=== PATIENT | male | born 1965 | race African-American/Black ===

== ENCOUNTER 2022-03-06 12:25 | Inpatient (IN) | payer MEDICAID, OTHER ==
[~2022-03-06] VITALS: Ht 165.1 cm; Wt 61.7 kg
[2022-03-06] MEDS ORDERED: SODIUM CHLORIDE 0.9% 1,000 ML IV ONE ×2 (13:45→14:00)
[2022-03-06] MEDS ORDERED: ONDANSETRON HCL 4MG/2ML INJ IV ONE (13:45)
[2022-03-06] MEDS ORDERED: FAMOTIDINE 20MG/2ML VIAL IV ONE (13:45)
[2022-03-06 14:43] LABS: BASOPHILS % 0.6 % (0.0-2.0); EOSINOPHILS % 0.1 % (0.0-5.0); LYMPHOCYTES % 12.9 % (20.0-50.0); MEAN CORPUSCULAR HEMOGLOBIN 21.7 pg (28.0-32.0); MEAN CORPUSCULAR VOLUME 70.7 fL (80.0-94.0); MONOCYTES % 7.3 % (2.0-8.0); NEUTROPHILS % 79.1 % (40.0-76.0); PLATELET 148 x1000/uL (130-400); RED BLOOD CELL COUNT 2.07 mill/uL (4.7-6.1); RED CELL DISTRIBUTION WIDTH 22.7 % (11.6-14.6)
[2022-03-06 14:54] LABS: HEMATOCRIT. 14.6 % (42.0-52.0); HEMOGLOBIN. 4.5 g/dL (14.0-18.0)
[2022-03-06 14:58] LABS: CHLORIDE 109 mEq/L (98-107)
[2022-03-06] MEDS ORDERED: PANTOPRAZOLE SODIUM 40 MG/VIAL IV ONE (15:15)
[2022-03-06 15:37] LABS: INR 1.3; PROTHROMBIN TIME 13.5 sec (9.6-11.0)
[2022-03-06 16:05] LABS: PLATELET ESTIMATE NORMAL
[2022-03-06] MEDS ORDERED: ONDANSETRON HCL 4MG/2ML INJ IV PRN (23:15)
[2022-03-06] MEDS: SODIUM CHLORIDE 0.9% 1,000 ML IV SCH (23:15)
[2022-03-06] MEDS ORDERED: ACETAMINOPHEN 325MG TABLET PO PRN ×2 (23:15)
[2022-03-06] MEDS ORDERED: ZOLPIDEM TARTRATE 5MG TABLET PO PRN (23:15)
[2022-03-06] MEDS: PANTOPRAZOLE SODIUM 40 MG/VIAL IV SCH (23:15)
[2022-03-06] MEDS ORDERED: DIPHENHYDRAMINE 50MG/ML VIAL IV PRN (23:15)
[2022-03-07] VITALS (36 sets, daily range): BP systolic 89–129; BP diastolic 23–69
[2022-03-07 00:08] LABS: TOTAL IRON BINDING CAPACITY 310 ug/dL (250-450)
[2022-03-07 04:58] LABS: HEMATOCRIT 21.2 % (42.0-52.0); MEAN CORPUSCULAR HEMOGLOBIN 25.3 pg (28.0-32.0); MEAN CORPUSCULAR VOLUME 79.4 fL (80.0-94.0); PLATELET 107 x1000/uL (130-400); RED BLOOD CELL COUNT 2.67 mill/uL (4.7-6.1); RED CELL DISTRIBUTION WIDTH 19.2 % (11.6-14.6)
[2022-03-07 05:13] LABS: HEMOGLOBIN 6.8 g/dL (14.0-18.0)
[2022-03-07] MEDS ORDERED: NOREPINEPHRINE 8MG/250ML PMX 250 ML IV NR (09:15)
[2022-03-07] MEDS: SODIUM CHLORIDE 0.9% 1,000 ML IV SCH ×2 (09:15→18:00)
[2022-03-07] MEDS: PANTOPRAZOLE SODIUM 40 MG/VIAL IV SCH ×2 (11:15→12:28)
[2022-03-07] MEDS ORDERED: IOHEXOL-300 100 ML BOTTLE ONE (12:03)
[2022-03-07] MEDS: IRON SUCROSE COMPLEX 100 MG/5 ML ML IV SCH (12:28)
[2022-03-07 14:30] LABS: HEMATOCRIT 32.8 % (42.0-52.0); HEMOGLOBIN 10.3 g/dL (14.0-18.0)
[2022-03-07] MEDS ORDERED: IRON SUCROSE COMPLEX 100 MG/5 ML ML IV SCH (15:00)
[2022-03-07 15:06] LABS: VITAMIN B12 SERUM 370 pg/mL (211-911)
[2022-03-07 15:36] LABS: FERRITIN 8 ng/mL (22-322)
[2022-03-07] MEDS ORDERED: NOREPINEPHRINE 8 MG in DEXTROSE 5% WATER 250 ML IV PRN (18:00)
[2022-03-07 18:47] LABS: HEMATOCRIT 29.5 % (42.0-52.0); HEMOGLOBIN 9.6 g/dL (14.0-18.0)
[2022-03-08] VITALS (38 sets, daily range): BP systolic 78–124; BP diastolic 24–99
[2022-03-08 00:37] LABS: HEMOGLOBIN 9.1 g/dL (14.0-18.0)
[2022-03-08] MEDS: SODIUM CHLORIDE 0.9% 1,000 ML IV SCH ×2 (04:21→16:00)
[2022-03-08 06:08] LABS: HEMATOCRIT 27.5 % (42.0-52.0); HEMOGLOBIN 8.9 g/dL (14.0-18.0)
[2022-03-08] MEDS: PANTOPRAZOLE SODIUM 40 MG/VIAL IV SCH (08:59)
[2022-03-08 11:59] LABS: HEMATOCRIT 29.3 % (42.0-52.0); HEMOGLOBIN 9.6 g/dL (14.0-18.0)
[2022-03-08] MEDS: IRON SUCROSE COMPLEX 100 MG/5 ML ML IV SCH (12:41)
[2022-03-09] VITALS (61 sets, daily range): BP systolic 92–135; BP diastolic 51–87
[2022-03-09] MEDS: SODIUM CHLORIDE 0.9% 1,000 ML IV SCH ×3 (02:23→21:09)
[2022-03-09 05:47] LABS: HEMATOCRIT. 27.3 % (42.0-52.0); HEMOGLOBIN. 9.1 g/dL (14.0-18.0); MEAN CORPUSCULAR VOLUME 83.6 fL (80.0-94.0); RED BLOOD CELL COUNT 3.26 mill/uL (4.7-6.1); RED CELL DISTRIBUTION WIDTH 18.5 % (11.6-14.6)
[2022-03-09 06:03] LABS: CHLORIDE 106 mEq/L (98-107)
[2022-03-09 06:22] LABS: INR 1.1; PROTHROMBIN TIME 11.9 sec (9.6-11.0)
[2022-03-09] MEDS: PANTOPRAZOLE SODIUM 40 MG/VIAL IV SCH ×2 (10:00→21:09)
[2022-03-09 11:21] LABS: PLATELET 89 x1000/uL (130-400)
[2022-03-09 11:28] LABS: PLATELET ESTIMATE DECREASED
[2022-03-09] MEDS: IRON SUCROSE COMPLEX 100 MG/5 ML ML IV SCH (11:56)
[2022-03-09] MEDS: SUCRALFATE 1G TABLET PO SCH ×2 (17:55→21:09)
[2022-03-09] MEDS: METOCLOPRAMIDE HCL 10MG/2ML VIAL IV SCH (18:18)
[2022-03-10] VITALS (18 sets, daily range): BP systolic 81–114; BP diastolic 49–68
[2022-03-10] MEDS: METOCLOPRAMIDE HCL 10MG/2ML VIAL IV SCH ×5 (00:44→23:43)
[2022-03-10 05:38] LABS: HEMATOCRIT. 24.8 % (42.0-52.0); HEMOGLOBIN. 8.1 g/dL (14.0-18.0); MEAN CORPUSCULAR HEMOGLOBIN 27.9 pg (28.0-32.0); MEAN CORPUSCULAR VOLUME 85.6 fL (80.0-94.0); MEAN PLATELET VOLUME 8.7 fl (7.4-10.4); PLATELET 98 x1000/uL (130-400); RED BLOOD CELL COUNT 2.89 mill/uL (4.7-6.1); RED CELL DISTRIBUTION WIDTH 19.6 % (11.6-14.6)
[2022-03-10] MEDS: SODIUM CHLORIDE 0.9% 1,000 ML IV SCH ×2 (05:58→17:10)
[2022-03-10] MEDS: PANTOPRAZOLE SODIUM 40 MG/VIAL IV SCH ×2 (10:16→21:29)
[2022-03-10] MEDS: SUCRALFATE 1G TABLET PO SCH ×4 (10:18→21:29)
[2022-03-10 10:24] LABS: NUCLEATED RED BLOOD CELLS 2 /100 WBC
[2022-03-10 10:26] LABS: PLATELET ESTIMATE SLIGHTLY DECREASED
[2022-03-10] MEDS: MIDODRINE HCL 5MG TABLET PO SCH ×2 (12:25→17:10)
[2022-03-11] VITALS (24 sets, daily range): BP systolic 83–136; BP diastolic 40–62
[2022-03-11] MEDS: METOCLOPRAMIDE HCL 10MG/2ML VIAL IV SCH ×4 (06:14→23:49)
[2022-03-11] MEDS: SUCRALFATE 1G TABLET PO SCH ×4 (06:14→22:19)
[2022-03-11] MEDS: SODIUM CHLORIDE 0.9% 1,000 ML IV SCH ×3 (06:15→23:50)
[2022-03-11 07:16] LABS: BASOPHILS % 0.5 % (0.0-2.0); EOSINOPHILS % 2.2 % (0.0-5.0); LYMPHOCYTES % 13.7 % (20.0-50.0); MEAN CORPUSCULAR HEMOGLOBIN 28.6 pg (28.0-32.0); MEAN CORPUSCULAR VOLUME 86.2 fL (80.0-94.0); MONOCYTES % 12.7 % (2.0-8.0); NEUTROPHILS % 70.9 % (40.0-76.0); PLATELET 115 x1000/uL (130-400); RED BLOOD CELL COUNT 2.19 mill/uL (4.7-6.1); RED CELL DISTRIBUTION WIDTH 19.6 % (11.6-14.6)
[2022-03-11 08:36] LABS: HEMATOCRIT. 18.9 % (42.0-52.0); HEMOGLOBIN. 6.3 g/dL (14.0-18.0)
[2022-03-11] MEDS: MIDODRINE HCL 5MG TABLET PO SCH ×3 (10:01→17:08)
[2022-03-11] MEDS: PANTOPRAZOLE SODIUM 40 MG/VIAL IV SCH ×2 (10:02→22:19)
[2022-03-11 16:03] LABS: CHLORIDE 104 mEq/L (98-107)
[2022-03-11 20:21] LABS: HEMATOCRIT 21.9 % (42.0-52.0); HEMOGLOBIN 7.2 g/dL (14.0-18.0)
[2022-03-11 20:32] LABS: INR 1.2; PROTHROMBIN TIME 12.9 sec (9.6-11.0)
[2022-03-12] VITALS (20 sets, daily range): BP systolic 84–116; BP diastolic 53–71
[2022-03-12 01:23] LABS: HEMATOCRIT 24.1 % (42.0-52.0); HEMOGLOBIN 7.9 g/dL (14.0-18.0)
[2022-03-12] MEDS: METOCLOPRAMIDE HCL 10MG/2ML VIAL IV SCH ×3 (05:30→18:02)
[2022-03-12] MEDS ORDERED: POTASSIUM CHLORIDE 20MEQ TABLET SR PO SCH (07:30)
[2022-03-12 08:42] LABS: BASOPHILS % 0.4 % (0.0-2.0); EOSINOPHILS % 2.8 % (0.0-5.0); HEMATOCRIT. 21.3 % (42.0-52.0); HEMOGLOBIN. 7.1 g/dL (14.0-18.0); LYMPHOCYTES % 15.5 % (20.0-50.0); MEAN CORPUSCULAR HEMOGLOBIN 30.3 pg (28.0-32.0); MEAN CORPUSCULAR VOLUME 91.3 fL (80.0-94.0); MEAN PLATELET VOLUME 8.7 fl (7.4-10.4); MONOCYTES % 10.9 % (2.0-8.0); NEUTROPHILS % 70.4 % (40.0-76.0); PLATELET 99 x1000/uL (130-400); RED BLOOD CELL COUNT 2.33 mill/uL (4.7-6.1); RED CELL DISTRIBUTION WIDTH 16.5 % (11.6-14.6)
[2022-03-12] MEDS: MIDODRINE HCL 5MG TABLET PO SCH ×3 (09:06→18:03)
[2022-03-12] MEDS: SUCRALFATE 1G TABLET PO SCH ×4 (09:06→21:00)
[2022-03-12] MEDS: PANTOPRAZOLE SODIUM 40 MG/VIAL IV SCH ×2 (09:06→21:00)
[2022-03-12] MEDS: SODIUM CHLORIDE 0.9% 1,000 ML IV SCH ×2 (09:06→18:03)
[2022-03-12 10:12] LABS: CHLORIDE 107 mEq/L (98-107)
[2022-03-12 14:47] LABS: CHLORIDE 102 mEq/L (98-107)
[2022-03-12 19:48] LABS: HEMATOCRIT 27.2 % (42.0-52.0); HEMOGLOBIN 8.8 g/dL (14.0-18.0)
[2022-03-12 19:56] LABS: INR 1.1; PROTHROMBIN TIME 11.9 sec (9.6-11.0)
[2022-03-13] VITALS (15 sets, daily range): BP systolic 96–114; BP diastolic 40–71
[2022-03-13 01:03] LABS: HEMATOCRIT 22.4 % (42.0-52.0); HEMOGLOBIN 7.4 g/dL (14.0-18.0)
[2022-03-13] MEDS: SODIUM CHLORIDE 0.9% 1,000 ML IV SCH ×2 (05:15→13:51)
[2022-03-13] MEDS: METOCLOPRAMIDE HCL 10MG/2ML VIAL IV SCH ×4 (06:00→17:21)
[2022-03-13 08:19] LABS: BASOPHILS % 0.6 % (0.0-2.0); EOSINOPHILS % 5.5 % (0.0-5.0); HEMATOCRIT. 22.1 % (42.0-52.0); HEMOGLOBIN. 7.4 g/dL (14.0-18.0); LYMPHOCYTES % 15.5 % (20.0-50.0); MEAN CORPUSCULAR VOLUME 89.3 fL (80.0-94.0); MEAN PLATELET VOLUME 8.9 fl (7.4-10.4); MONOCYTES % 10.6 % (2.0-8.0); NEUTROPHILS % 67.8 % (40.0-76.0); PLATELET 123 x1000/uL (130-400); RED BLOOD CELL COUNT 2.47 mill/uL (4.7-6.1); RED CELL DISTRIBUTION WIDTH 18.7 % (11.6-14.6)
[2022-03-13 08:47] LABS: CHLORIDE 105 mEq/L (98-107)
[2022-03-13] MEDS: SUCRALFATE 1G TABLET PO SCH ×4 (09:20→21:05)
[2022-03-13] MEDS: PANTOPRAZOLE SODIUM 40 MG/VIAL IV SCH ×2 (09:20→21:05)
[2022-03-13] MEDS: MIDODRINE HCL 5MG TABLET PO SCH ×3 (09:20→17:22)
[2022-03-13 13:16] LABS: HEMOGLOBIN 6.5 g/dL (14.0-18.0)
[2022-03-13 13:17] LABS: HEMATOCRIT 20.2 % (42.0-52.0)
[2022-03-14] VITALS (14 sets, daily range): BP systolic 83–108; BP diastolic 39–68
[2022-03-14 00:17] LABS: INR 1.1; PROTHROMBIN TIME 11.9 sec (9.6-11.0)
[2022-03-14] MEDS: METOCLOPRAMIDE HCL 10MG/2ML VIAL IV SCH ×4 (00:17→17:11)
[2022-03-14] MEDS: SODIUM CHLORIDE 0.9% 1,000 ML IV SCH ×3 (00:18→09:39)
[2022-03-14] MEDS: PANTOPRAZOLE SODIUM 40 MG/VIAL IV SCH ×2 (09:36→21:27)
[2022-03-14] MEDS: MIDODRINE HCL 5MG TABLET PO SCH ×3 (09:37→17:12)
[2022-03-14] MEDS: SUCRALFATE 1G TABLET PO SCH ×4 (09:38→21:27)
[2022-03-14 10:44] LABS: HEMATOCRIT 22.7 % (42.0-52.0); HEMOGLOBIN 7.4 g/dL (14.0-18.0)
[2022-03-14] MEDS ORDERED: SORBITOL 70% SOLN 30ML PO NR ×2 (18:15→22:15)
[2022-03-14] MEDS ORDERED: SODIUM CHLORIDE 0.9% IV ONE (18:45)
[2022-03-14] MEDS ORDERED: METOCLOPRAMIDE HCL 10MG/2ML VIAL IV NR ×2 (18:45→22:45)
[2022-03-14] MEDS ORDERED: SODIUM CHLORIDE 0.9% 500 ML IV NR ×2 (18:45→19:00)
[2022-03-14] MEDS ORDERED: BISACODYL 5MG TABLET PO NR ×2 (18:45→22:45)
[2022-03-15] VITALS (35 sets, daily range): BP systolic 81–154; BP diastolic 44–92
[2022-03-15] MEDS: METOCLOPRAMIDE HCL 10MG/2ML VIAL IV SCH ×6 (00:26→20:50)
[2022-03-15 03:26] LABS: BASOPHILS % 0.7 % (0.0-2.0); EOSINOPHILS % 3.8 % (0.0-5.0); LYMPHOCYTES % 9.4 % (20.0-50.0); MEAN CORPUSCULAR HEMOGLOBIN 29.9 pg (28.0-32.0); MEAN CORPUSCULAR VOLUME 92.4 fL (80.0-94.0); MONOCYTES % 9.2 % (2.0-8.0); NEUTROPHILS % 76.9 % (40.0-76.0); PLATELET 146 x1000/uL (130-400); RED BLOOD CELL COUNT 1.98 mill/uL (4.7-6.1); RED CELL DISTRIBUTION WIDTH 18.5 % (11.6-14.6)
[2022-03-15 03:27] LABS: INR 1.1; PROTHROMBIN TIME 11.3 sec (9.6-11.0)
[2022-03-15 03:49] LABS: CHLORIDE 108 mEq/L (98-107)
[2022-03-15 04:14] LABS: HEMATOCRIT. 18.3 % (42.0-52.0); HEMOGLOBIN. 5.9 g/dL (14.0-18.0)
[2022-03-15] MEDS: SODIUM CHLORIDE 0.9% 1,000 ML IV SCH ×2 (09:59→17:15)
[2022-03-15] MEDS: SUCRALFATE 1G TABLET PO SCH ×4 (09:59→20:51)
[2022-03-15] MEDS: MIDODRINE HCL 5MG TABLET PO SCH ×3 (09:59→17:13)
[2022-03-15] MEDS: PANTOPRAZOLE SODIUM 40 MG/VIAL IV SCH ×2 (09:59→20:50)
[2022-03-15] MEDS: BISACODYL 5MG TABLET PO SCH ×2 (17:13→20:51)
[2022-03-15] MEDS: SORBITOL 70% SOLN 30ML PO SCH ×2 (17:13→20:52)
[2022-03-15 18:40] LABS: HEMATOCRIT 24.3 % (42.0-52.0)
[2022-03-15 23:21] LABS: HEMATOCRIT 27.6 % (42.0-52.0); HEMOGLOBIN 8.9 g/dL (14.0-18.0)
[2022-03-16] VITALS (35 sets, daily range): BP systolic 78–132; BP diastolic 41–88
[2022-03-16] MEDS: METOCLOPRAMIDE HCL 10MG/2ML VIAL IV SCH ×4 (01:53→17:05)
[2022-03-16] MEDS: SORBITOL 70% SOLN 30ML PO SCH ×3 (01:53→21:55)
[2022-03-16] MEDS: BISACODYL 5MG TABLET PO SCH ×4 (01:53→13:26)
[2022-03-16] MEDS: SODIUM CHLORIDE 0.9% 1,000 ML IV SCH ×3 (01:53→21:56)
[2022-03-16 03:39] LABS: BASOPHILS % 0.6 % (0.0-2.0); EOSINOPHILS % 4.8 % (0.0-5.0); HEMATOCRIT. 27.8 % (42.0-52.0); HEMOGLOBIN. 9.1 g/dL (14.0-18.0); MEAN CORPUSCULAR HEMOGLOBIN 30.6 pg (28.0-32.0); MEAN CORPUSCULAR VOLUME 93.2 fL (80.0-94.0); MEAN PLATELET VOLUME 9.4 fl (7.4-10.4); MONOCYTES % 8.8 % (2.0-8.0); NEUTROPHILS % 69.8 % (40.0-76.0); PLATELET 168 x1000/uL (130-400); RED BLOOD CELL COUNT 2.99 mill/uL (4.7-6.1); RED CELL DISTRIBUTION WIDTH 15.6 % (11.6-14.6)
[2022-03-16 03:54] LABS: PROTHROMBIN TIME 11.2 sec (9.6-11.0)
[2022-03-16 04:28] LABS: CHLORIDE 110 mEq/L (98-107)
[2022-03-16] MEDS: SUCRALFATE 1G TABLET PO SCH ×4 (06:15→21:55)
[2022-03-16] MEDS ORDERED: SODIUM CHLORIDE 0.9% 500 ML IV NR (07:45)
[2022-03-16] MEDS: MIDODRINE HCL 5MG TABLET PO SCH ×3 (08:13→17:04)
[2022-03-16] MEDS: PANTOPRAZOLE SODIUM 40 MG/VIAL IV SCH ×2 (08:13→21:55)
[2022-03-16] MEDS ORDERED: PROPOFOL 200MG/20ML VIAL IV ONE (10:05)
[2022-03-16 11:18] LABS: HEMATOCRIT 20.6 % (42.0-52.0); HEMOGLOBIN 6.9 g/dL (14.0-18.0)
[2022-03-17] VITALS (19 sets, daily range): BP systolic 89–131; BP diastolic 29–71
[2022-03-17 00:48] LABS: HEMATOCRIT 29.2 % (42.0-52.0)
[2022-03-17] MEDS: METOCLOPRAMIDE HCL 10MG/2ML VIAL IV SCH ×4 (01:34→17:41)
[2022-03-17 04:09] LABS: HIV SCREEN 4G Non Reactive (Non Reactive)
[2022-03-17] MEDS: SUCRALFATE 1G TABLET PO SCH ×4 (06:54→21:49)
[2022-03-17] MEDS ORDERED: SODIUM CHLORIDE 0.9% 500 ML IV NR (07:25)
[2022-03-17 08:53] LABS: BASOPHILS % 0.6 % (0.0-2.0); EOSINOPHILS % 4.9 % (0.0-5.0); HEMATOCRIT. 28.5 % (42.0-52.0); HEMOGLOBIN. 9.5 g/dL (14.0-18.0); LYMPHOCYTES % 8.3 % (20.0-50.0); MEAN CORPUSCULAR HEMOGLOBIN 30.4 pg (28.0-32.0); MEAN CORPUSCULAR VOLUME 91.7 fL (80.0-94.0); MEAN PLATELET VOLUME 9.1 fl (7.4-10.4); NEUTROPHILS % 77.2 % (40.0-76.0); PLATELET 186 x1000/uL (130-400); RED BLOOD CELL COUNT 3.11 mill/uL (4.7-6.1); RED CELL DISTRIBUTION WIDTH 14.9 % (11.6-14.6)
[2022-03-17 08:57] LABS: CHLORIDE 110 mEq/L (98-107); INR 1.1; PROTHROMBIN TIME 11.9 sec (9.6-11.0)
[2022-03-17 09:29] LABS: HEMATOCRIT 28.3 % (42.0-52.0); HEMOGLOBIN 9.3 g/dL (14.0-18.0)
[2022-03-17] MEDS: PANTOPRAZOLE SODIUM 40 MG/VIAL IV SCH ×2 (09:57→21:49)
[2022-03-17] MEDS: SODIUM CHLORIDE 0.9% 1,000 ML IV SCH ×2 (09:58→21:50)
[2022-03-17] MEDS: MIDODRINE HCL 5MG TABLET PO SCH ×3 (09:58→17:43)
[2022-03-17] MEDS ORDERED: PROPOFOL 200MG/20ML VIAL IV ONE ×2 (11:05→12:43)
[2022-03-17] MEDS ORDERED: MIDAZOLAM HCL 5 MG/5 ML VIAL ONE (11:05)
[2022-03-17] MEDS ORDERED: EPHEDRINE SULFATE 50MG/ML VIAL ONE (11:06)
[2022-03-17] MEDS ORDERED: LIDOCAINE HCL 1% 10 MG/ML 10ML VIAL ONE (11:06)
[2022-03-17] MEDS ORDERED: SODIUM CHLORIDE 0.9% 10ML VIAL ONE (11:06)
[2022-03-17] MEDS ORDERED: PHENYLEPHRINE HCL 10 MG/ML 1ML (IV VIAL) IV ONE ×2 (11:06→12:09)
[2022-03-17] MEDS ORDERED: ETOMIDATE 2MG/ML 10ML VIAL IV ONE ×2 (11:10→12:15)
[2022-03-17] MEDS ORDERED: GLYCOPYRROLATE 0.2 MG/ML 2ML VIAL ONE (11:42)
[2022-03-17] MEDS ORDERED: SIMETHICONE 40 MG/0.6 ML 15ML ONE (12:17)
[2022-03-17] MEDS: KCL 20MEQ/100ML PREMIX 100 ML IV SCH ×2 (16:05→17:41)
[2022-03-17 17:37] LABS: BASOPHILS % 0.7 % (0.0-2.0); EOSINOPHILS % 2.5 % (0.0-5.0); HEMATOCRIT. 32.2 % (42.0-52.0); HEMOGLOBIN. 10.6 g/dL (14.0-18.0); LYMPHOCYTES % 8.6 % (20.0-50.0); MEAN CORPUSCULAR HEMOGLOBIN 30.5 pg (28.0-32.0); MEAN CORPUSCULAR VOLUME 93.1 fL (80.0-94.0); MEAN PLATELET VOLUME 8.9 fl (7.4-10.4); MONOCYTES % 10.8 % (2.0-8.0); NEUTROPHILS % 77.4 % (40.0-76.0); PLATELET 193 x1000/uL (130-400); RED BLOOD CELL COUNT 3.46 mill/uL (4.7-6.1)
[2022-03-17 18:20] LABS: CHLORIDE 108 mEq/L (98-107)
[2022-03-18] VITALS (21 sets, daily range): BP systolic 83–107; BP diastolic 43–88
[2022-03-18] MEDS: METOCLOPRAMIDE HCL 10MG/2ML VIAL IV SCH ×5 (01:58→23:09)
[2022-03-18] MEDS: SODIUM CHLORIDE 0.9% 1,000 ML IV SCH ×3 (05:15→23:09)
[2022-03-18] MEDS: SUCRALFATE 1G TABLET PO SCH ×4 (06:48→21:32)
[2022-03-18] MEDS: PANTOPRAZOLE SODIUM 40 MG/VIAL IV SCH ×2 (08:48→21:32)
[2022-03-18] MEDS: MIDODRINE HCL 5MG TABLET PO SCH ×3 (08:51→17:24)
[2022-03-18 09:00] LABS: BASOPHILS % 0.5 % (0.0-2.0); EOSINOPHILS % 3.1 % (0.0-5.0); LYMPHOCYTES % 11.2 % (20.0-50.0); MEAN CORPUSCULAR HEMOGLOBIN 30.6 pg (28.0-32.0); MEAN CORPUSCULAR VOLUME 92.9 fL (80.0-94.0); MEAN PLATELET VOLUME 9.4 fl (7.4-10.4); MONOCYTES % 9.3 % (2.0-8.0); NEUTROPHILS % 75.9 % (40.0-76.0); PLATELET 193 x1000/uL (130-400); RED BLOOD CELL COUNT 2.22 mill/uL (4.7-6.1); RED CELL DISTRIBUTION WIDTH 14.6 % (11.6-14.6)
[2022-03-18 09:13] LABS: CHLORIDE 106 mEq/L (98-107)
[2022-03-18 09:16] LABS: HEMATOCRIT. 20.6 % (42.0-52.0)
[2022-03-18 09:22] LABS: HEMOGLOBIN. 6.8 g/dL (14.0-18.0)
[2022-03-18] MEDS ORDERED: SODIUM CHLORIDE 0.9% 1000ML BAG (SEPSIS BOLUS) IV ONE (12:15)
[2022-03-19] VITALS (25 sets, daily range): BP systolic 81–115; BP diastolic 55–83
[2022-03-19] MEDS: SUCRALFATE 1G TABLET PO SCH ×4 (07:14→21:53)
[2022-03-19] MEDS: METOCLOPRAMIDE HCL 10MG/2ML VIAL IV SCH ×3 (07:14→23:12)
[2022-03-19 08:39] LABS: BASOPHILS % 1.1 % (0.0-2.0); EOSINOPHILS % 2.2 % (0.0-5.0); LYMPHOCYTES % 13.8 % (20.0-50.0); MEAN CORPUSCULAR HEMOGLOBIN 30.3 pg (28.0-32.0); MEAN PLATELET VOLUME 9.1 fl (7.4-10.4); MONOCYTES % 11.7 % (2.0-8.0); NEUTROPHILS % 71.2 % (40.0-76.0); PLATELET 164 x1000/uL (130-400); RED BLOOD CELL COUNT 1.55 mill/uL (4.7-6.1); RED CELL DISTRIBUTION WIDTH 14.5 % (11.6-14.6)
[2022-03-19 08:45] LABS: HEMOGLOBIN. 4.7 g/dL (14.0-18.0)
[2022-03-19 08:46] LABS: HEMATOCRIT. 14.2 % (42.0-52.0)
[2022-03-19 08:48] LABS: CHLORIDE 107 mEq/L (98-107)
[2022-03-19] MEDS: MIDODRINE HCL 5MG TABLET PO SCH ×2 (10:03→11:56)
[2022-03-19] MEDS: PANTOPRAZOLE SODIUM 40 MG/VIAL IV SCH ×2 (10:09→21:53)
[2022-03-19] MEDS: SODIUM CHLORIDE 0.9% 1,000 ML IV SCH ×2 (11:27→21:15)
[2022-03-19] MEDS ORDERED: IOHEXOL-350 100 ML BOTTLE ONE (16:25)
[2022-03-19 17:31] LABS: HEMOGLOBIN 8.9 g/dL (14.0-18.0)
[2022-03-20] VITALS (22 sets, daily range): BP systolic 92–116; BP diastolic 45–76
[2022-03-20 01:45] LABS: HEMATOCRIT 20.1 % (42.0-52.0); HEMOGLOBIN 6.6 g/dL (14.0-18.0)
[2022-03-20] MEDS: METOCLOPRAMIDE HCL 10MG/2ML VIAL IV SCH ×3 (07:04→17:10)
[2022-03-20] MEDS: SODIUM CHLORIDE 0.9% 1,000 ML IV SCH ×2 (07:08→17:09)
[2022-03-20] MEDS: SUCRALFATE 1G TABLET PO SCH ×4 (07:30→20:16)
[2022-03-20 08:02] LABS: BASOPHILS % 0.8 % (0.0-2.0); EOSINOPHILS % 5.7 % (0.0-5.0); LYMPHOCYTES % 9.7 % (20.0-50.0); MEAN CORPUSCULAR HEMOGLOBIN 28.6 pg (28.0-32.0); MEAN CORPUSCULAR VOLUME 85.8 fL (80.0-94.0); MEAN PLATELET VOLUME 8.9 fl (7.4-10.4); MONOCYTES % 10.8 % (2.0-8.0); PLATELET 170 x1000/uL (130-400); RED BLOOD CELL COUNT 2.26 mill/uL (4.7-6.1); RED CELL DISTRIBUTION WIDTH 16.5 % (11.6-14.6)
[2022-03-20 08:23] LABS: HEMATOCRIT. 19.4 % (42.0-52.0); HEMOGLOBIN. 6.5 g/dL (14.0-18.0)
[2022-03-20 08:30] LABS: CHLORIDE 105 mEq/L (98-107)
[2022-03-20] MEDS: PANTOPRAZOLE SODIUM 40 MG/VIAL IV SCH ×2 (09:48→20:17)
[2022-03-20] MEDS: MIDODRINE HCL 5MG TABLET PO SCH ×3 (09:50→17:07)
[2022-03-20 15:29] LABS: HEMATOCRIT 22.4 % (42.0-52.0); HEMOGLOBIN 7.5 g/dL (14.0-18.0)
[2022-03-21] VITALS (15 sets, daily range): BP systolic 91–122; BP diastolic 58–75
[2022-03-21] MEDS: METOCLOPRAMIDE HCL 10MG/2ML VIAL IV SCH ×5 (00:55→23:18)
[2022-03-21] MEDS: SODIUM CHLORIDE 0.9% 1,000 ML IV SCH ×3 (00:59→20:40)
[2022-03-21] MEDS: PANTOPRAZOLE SODIUM 40 MG/VIAL IV SCH ×2 (10:28→20:39)
[2022-03-21] MEDS: SUCRALFATE 1G TABLET PO SCH ×4 (10:28→20:39)
[2022-03-21] MEDS: MIDODRINE HCL 5MG TABLET PO SCH ×3 (10:28→17:19)
[2022-03-22] VITALS (15 sets, daily range): BP systolic 89–120; BP diastolic 51–78
[2022-03-22 03:19] LABS: BASOPHILS % 0.6 % (0.0-2.0); EOSINOPHILS % 3.2 % (0.0-5.0); LYMPHOCYTES % 9.7 % (20.0-50.0); MEAN CORPUSCULAR HEMOGLOBIN 27.9 pg (28.0-32.0); MEAN CORPUSCULAR VOLUME 87.1 fL (80.0-94.0); MEAN PLATELET VOLUME 8.8 fl (7.4-10.4); NEUTROPHILS % 76.5 % (40.0-76.0); PLATELET 202 x1000/uL (130-400); RED BLOOD CELL COUNT 2.28 mill/uL (4.7-6.1); RED CELL DISTRIBUTION WIDTH 15.5 % (11.6-14.6)
[2022-03-22 03:24] LABS: PROTHROMBIN TIME 10.9 sec (9.6-11.0)
[2022-03-22 03:25] LABS: HEMATOCRIT. 19.8 % (42.0-52.0); HEMOGLOBIN. 6.4 g/dL (14.0-18.0)
[2022-03-22 03:36] LABS: CHLORIDE 105 mEq/L (98-107)
[2022-03-22] MEDS: METOCLOPRAMIDE HCL 10MG/2ML VIAL IV SCH ×3 (05:41→17:13)
[2022-03-22] MEDS: SODIUM CHLORIDE 0.9% 1,000 ML IV SCH ×2 (05:42→19:15)
[2022-03-22] MEDS: SUCRALFATE 1G TABLET PO SCH ×2 (07:30→10:25)
[2022-03-22] MEDS: PANTOPRAZOLE SODIUM 40 MG/VIAL IV SCH ×2 (10:21→20:58)
[2022-03-22] MEDS: MIDODRINE HCL 5MG TABLET PO SCH ×3 (10:25→17:13)
[2022-03-22 13:30] LABS: HEMATOCRIT 26.3 % (42.0-52.0); HEMOGLOBIN 8.5 g/dL (14.0-18.0); MEAN CORPUSCULAR HEMOGLOBIN 28.2 pg (28.0-32.0); MEAN CORPUSCULAR VOLUME 87.7 fL (80.0-94.0); PLATELET 192 x1000/uL (130-400); RED CELL DISTRIBUTION WIDTH 15.2 % (11.6-14.6)
[2022-03-22] MEDS ORDERED: PHENYLEPHRINE HCL 10 MG/ML 1ML (IV VIAL) IV ONE (13:50)
[2022-03-22] MEDS ORDERED: PROPOFOL 200MG/20ML VIAL IV ONE (13:50)
[2022-03-22] MEDS ORDERED: LIDOCAINE HCL 1% 10 MG/ML 10ML VIAL ONE ×2 (13:50→13:51)
[2022-03-22] MEDS ORDERED: MIDAZOLAM HCL 2 MG/2 ML VIAL ONE (13:50)
[2022-03-22] MEDS ORDERED: ETOMIDATE 2MG/ML 10ML VIAL IV ONE (13:51)
[2022-03-22] MEDS ORDERED: SIMETHICONE 40 MG/0.6 ML 15ML ONE (13:55)
[2022-03-22] MEDS ORDERED: SODIUM CHLORIDE 0.9% 10ML VIAL ONE (13:56)
[2022-03-22 18:30] LABS: HEMATOCRIT 27.3 % (42.0-52.0); HEMOGLOBIN 8.8 g/dL (14.0-18.0)
[2022-03-23] VITALS (12 sets, daily range): BP systolic 98–115; BP diastolic 60–68
[2022-03-23 00:04] LABS: HEMATOCRIT 27.1 % (42.0-52.0); HEMOGLOBIN 8.8 g/dL (14.0-18.0)
[2022-03-23] MEDS: METOCLOPRAMIDE HCL 10MG/2ML VIAL IV SCH ×4 (00:24→21:32)
[2022-03-23 03:22] LABS: BASOPHILS % 0.9 % (0.0-2.0); EOSINOPHILS % 2.6 % (0.0-5.0); HEMATOCRIT. 26.4 % (42.0-52.0); HEMOGLOBIN. 8.6 g/dL (14.0-18.0); LYMPHOCYTES % 7.3 % (20.0-50.0); MEAN CORPUSCULAR HEMOGLOBIN 28.3 pg (28.0-32.0); MEAN CORPUSCULAR VOLUME 86.3 fL (80.0-94.0); MEAN PLATELET VOLUME 8.9 fl (7.4-10.4); MONOCYTES % 9.4 % (2.0-8.0); NEUTROPHILS % 79.8 % (40.0-76.0); PLATELET 214 x1000/uL (130-400); RED BLOOD CELL COUNT 3.06 mill/uL (4.7-6.1); RED CELL DISTRIBUTION WIDTH 15.2 % (11.6-14.6)
[2022-03-23 03:33] LABS: CHLORIDE 102 mEq/L (98-107)
[2022-03-23] MEDS: SODIUM CHLORIDE 0.9% 1,000 ML IV SCH ×2 (05:45→15:26)
[2022-03-23] MEDS: MIDODRINE HCL 5MG TABLET PO SCH ×3 (09:16→17:37)
[2022-03-23] MEDS: PANTOPRAZOLE SODIUM 40 MG/VIAL IV SCH ×2 (09:16→21:32)
[2022-03-23 12:58] LABS: HEMATOCRIT 28.5 % (42.0-52.0); HEMOGLOBIN 9.3 g/dL (14.0-18.0)
[2022-03-23 21:08] LABS: HEMATOCRIT 24.3 % (42.0-52.0); HEMOGLOBIN 7.8 g/dL (14.0-18.0)
[2022-03-24] VITALS (12 sets, daily range): BP systolic 99–129; BP diastolic 55–84
[2022-03-24] MEDS: SODIUM CHLORIDE 0.9% 1,000 ML IV SCH ×2 (00:43→11:09)
[2022-03-24 01:05] LABS: HEMATOCRIT 23.2 % (42.0-52.0); HEMOGLOBIN 7.4 g/dL (14.0-18.0)
[2022-03-24 08:05] LABS: HEMATOCRIT. 22.7 % (42.0-52.0); HEMOGLOBIN. 7.4 g/dL (14.0-18.0); MEAN CORPUSCULAR HEMOGLOBIN 27.9 pg (28.0-32.0); MEAN CORPUSCULAR VOLUME 85.9 fL (80.0-94.0); MEAN PLATELET VOLUME 8.9 fl (7.4-10.4); PLATELET 229 x1000/uL (130-400); RED BLOOD CELL COUNT 2.64 mill/uL (4.7-6.1); RED CELL DISTRIBUTION WIDTH 15.1 % (11.6-14.6)
[2022-03-24 08:17] LABS: CHLORIDE 101 mEq/L (98-107)
[2022-03-24] MEDS: METOCLOPRAMIDE HCL 10MG/2ML VIAL IV SCH ×2 (08:19→21:35)
[2022-03-24] MEDS: MIDODRINE HCL 5MG TABLET PO SCH ×3 (08:19→17:00)
[2022-03-24] MEDS: PANTOPRAZOLE SODIUM 40 MG/VIAL IV SCH ×2 (08:19→21:35)
[2022-03-24] MEDS ORDERED: POTASSIUM CHLORIDE 20MEQ TABLET SR PO NR (10:15)
[2022-03-24 12:09] LABS: PLATELET ESTIMATE NORMAL
[2022-03-24 12:53] LABS: HEMATOCRIT 22.1 % (42.0-52.0)
[2022-03-25] VITALS (17 sets, daily range): BP systolic 53–125; BP diastolic 26–74
[2022-03-25] MEDS: SODIUM CHLORIDE 0.9% 1,000 ML IV SCH ×3 (03:57→16:45)
[2022-03-25 06:37] LABS: BASOPHILS % 0.5 % (0.0-2.0); EOSINOPHILS % 1.4 % (0.0-5.0); MEAN CORPUSCULAR HEMOGLOBIN 27.4 pg (28.0-32.0); MEAN CORPUSCULAR VOLUME 85.3 fL (80.0-94.0); MEAN PLATELET VOLUME 8.7 fl (7.4-10.4); MONOCYTES % 11.6 % (2.0-8.0); NEUTROPHILS % 76.5 % (40.0-76.0); PLATELET 220 x1000/uL (130-400); RED CELL DISTRIBUTION WIDTH 15.1 % (11.6-14.6)
[2022-03-25 07:16] LABS: HEMATOCRIT. 17.9 % (42.0-52.0); HEMOGLOBIN. 5.8 g/dL (14.0-18.0)
[2022-03-25 07:54] LABS: CHLORIDE 104 mEq/L (98-107)
[2022-03-25] MEDS ORDERED: METOCLOPRAMIDE HCL 10MG/2ML VIAL IV NR ×2 (08:30→10:00)
[2022-03-25] MEDS: MIDODRINE HCL 5MG TABLET PO SCH ×3 (08:30→16:45)
[2022-03-25] MEDS: PANTOPRAZOLE SODIUM 40 MG/VIAL IV SCH ×2 (08:30→20:46)
[2022-03-25] MEDS ORDERED: CALCIUM GLUCONATE 1GM PREMIX 50 ML IV NR (13:00)
[2022-03-25 20:54] LABS: HEMATOCRIT 29.9 % (42.0-52.0); HEMOGLOBIN 9.9 g/dL (14.0-18.0)
[2022-03-26] VITALS (30 sets, daily range): BP systolic 88–127; BP diastolic 52–80
[2022-03-26 01:12] LABS: HEMATOCRIT 28.7 % (42.0-52.0); HEMOGLOBIN 9.4 g/dL (14.0-18.0)
[2022-03-26] MEDS: SODIUM CHLORIDE 0.9% 1,000 ML IV SCH ×2 (05:54→13:43)
[2022-03-26 06:26] LABS: BASOPHILS % 1.1 % (0.0-2.0); EOSINOPHILS % 3.8 % (0.0-5.0); HEMATOCRIT. 27.1 % (42.0-52.0); HEMOGLOBIN. 8.9 g/dL (14.0-18.0); LYMPHOCYTES % 9.8 % (20.0-50.0); MEAN CORPUSCULAR HEMOGLOBIN 28.8 pg (28.0-32.0); MEAN CORPUSCULAR VOLUME 88.2 fL (80.0-94.0); MEAN PLATELET VOLUME 8.7 fl (7.4-10.4); MONOCYTES % 9.3 % (2.0-8.0); PLATELET 191 x1000/uL (130-400); RED BLOOD CELL COUNT 3.07 mill/uL (4.7-6.1); RED CELL DISTRIBUTION WIDTH 15.4 % (11.6-14.6)
[2022-03-26 07:02] LABS: CHLORIDE 101 mEq/L (98-107)
[2022-03-26] MEDS ORDERED: LIDOCAINE HCL 1% 10 MG/ML 10ML VIAL ONE (07:52)
[2022-03-26] MEDS ORDERED: MIDAZOLAM HCL 2 MG/2 ML VIAL ONE (07:52)
[2022-03-26] MEDS ORDERED: FENTANYL CITRATE/PF 50MCG/ML 2ML VIAL ONE (07:52)
[2022-03-26] MEDS ORDERED: IOHEXOL-300 100 ML BOTTLE ONE (07:53)
[2022-03-26] MEDS ORDERED: IOHEXOL-300 50 ML BOTTLE IV ONE ×2 (09:08→09:19)
[2022-03-26] MEDS ORDERED: MIDAZOLAM HCL 2 MG/2 ML VIAL IV ONE (09:45)
[2022-03-26] MEDS ORDERED: FENTANYL CITRATE/PF 50MCG/ML 2ML VIAL IV ONE (09:45)
[2022-03-26] MEDS: PANTOPRAZOLE SODIUM 40 MG/VIAL IV SCH ×2 (10:15→21:35)
[2022-03-26] MEDS: MIDODRINE HCL 5MG TABLET PO SCH ×3 (10:15→17:21)
[2022-03-26 12:32] LABS: HEMOGLOBIN 9.2 g/dL (14.0-18.0)
[2022-03-26] MEDS: SUCRALFATE 1 G/10 ML UDC PO SCH ×2 (17:20→21:35)
[2022-03-26 20:48] LABS: HEMATOCRIT 24.4 % (42.0-52.0); HEMOGLOBIN 7.9 g/dL (14.0-18.0)
[2022-03-27] VITALS (10 sets, daily range): BP systolic 100–118; BP diastolic 46–70
[2022-03-27] MEDS: SODIUM CHLORIDE 0.9% 1,000 ML IV SCH ×3 (00:09→20:05)
[2022-03-27 01:29] LABS: HEMATOCRIT 22.8 % (42.0-52.0); HEMOGLOBIN 7.4 g/dL (14.0-18.0)
[2022-03-27] MEDS: SUCRALFATE 1 G/10 ML UDC PO SCH ×4 (05:37→20:05)
[2022-03-27 06:30] LABS: BASOPHILS % 0.7 % (0.0-2.0); EOSINOPHILS % 1.9 % (0.0-5.0); HEMATOCRIT. 21.8 % (42.0-52.0); HEMOGLOBIN. 7.2 g/dL (14.0-18.0); LYMPHOCYTES % 9.1 % (20.0-50.0); MEAN CORPUSCULAR HEMOGLOBIN 28.6 pg (28.0-32.0); MEAN CORPUSCULAR VOLUME 86.9 fL (80.0-94.0); MEAN PLATELET VOLUME 8.8 fl (7.4-10.4); MONOCYTES % 11.1 % (2.0-8.0); NEUTROPHILS % 77.2 % (40.0-76.0); PLATELET 192 x1000/uL (130-400); RED BLOOD CELL COUNT 2.51 mill/uL (4.7-6.1); RED CELL DISTRIBUTION WIDTH 14.7 % (11.6-14.6)
[2022-03-27 06:39] LABS: CHLORIDE 101 mEq/L (98-107)
[2022-03-27] MEDS: PANTOPRAZOLE SODIUM 40 MG/VIAL IV SCH ×2 (08:45→20:05)
[2022-03-27] MEDS: MIDODRINE HCL 5MG TABLET PO SCH ×3 (08:45→17:26)
[2022-03-27 12:16] LABS: HEMATOCRIT 21.7 % (42.0-52.0)
[2022-03-27] MEDS: IRON SUCROSE COMPLEX 100 MG/5 ML ML IV SCH (15:04)
[2022-03-28] VITALS (12 sets, daily range): BP systolic 99–122; BP diastolic 46–76
[2022-03-28] MEDS: SUCRALFATE 1 G/10 ML UDC PO SCH ×4 (05:34→21:26)
[2022-03-28] MEDS: SODIUM CHLORIDE 0.9% 1,000 ML IV SCH ×2 (05:34→15:05)
[2022-03-28 07:17] LABS: BASOPHILS % 0.6 % (0.0-2.0); EOSINOPHILS % 3.4 % (0.0-5.0); HEMATOCRIT. 21.8 % (42.0-52.0); HEMOGLOBIN. 7.1 g/dL (14.0-18.0); LYMPHOCYTES % 10.7 % (20.0-50.0); MEAN CORPUSCULAR HEMOGLOBIN 28.7 pg (28.0-32.0); MEAN CORPUSCULAR VOLUME 88.7 fL (80.0-94.0); MEAN PLATELET VOLUME 8.6 fl (7.4-10.4); MONOCYTES % 11.8 % (2.0-8.0); NEUTROPHILS % 73.5 % (40.0-76.0); PLATELET 155 x1000/uL (130-400); RED BLOOD CELL COUNT 2.46 mill/uL (4.7-6.1)
[2022-03-28 07:58] LABS: CHLORIDE 104 mEq/L (98-107)
[2022-03-28] MEDS: MIDODRINE HCL 5MG TABLET PO SCH ×3 (09:17→17:14)
[2022-03-28] MEDS: PANTOPRAZOLE SODIUM 40 MG/VIAL IV SCH ×2 (09:17→21:26)
[2022-03-28] MEDS ORDERED: METHYLPREDNISOLONE SOD SUCC 125 MG/2 ML VIAL IV NR (11:45)
[2022-03-28] MEDS: IPRATROPIUM/ALBUTEROL 0.5-3(2.5)MG/3ML NEB HHN PRN (12:47)
[2022-03-28] MEDS: IRON SUCROSE COMPLEX 100 MG/5 ML ML IV SCH (14:53)
[2022-03-28 20:52] LABS: HEMATOCRIT 25.7 % (42.0-52.0); HEMOGLOBIN 8.2 g/dL (14.0-18.0)
[2022-03-29] VITALS (14 sets, daily range): BP systolic 90–107; BP diastolic 51–65
[2022-03-29] MEDS: SODIUM CHLORIDE 0.9% 1,000 ML IV SCH ×3 (01:34→21:32)
[2022-03-29 05:54] LABS: BASOPHILS % 0.2 % (0.0-2.0); LYMPHOCYTES % 13.2 % (20.0-50.0); MEAN CORPUSCULAR HEMOGLOBIN 28.6 pg (28.0-32.0); MEAN CORPUSCULAR VOLUME 89.6 fL (80.0-94.0); MEAN PLATELET VOLUME 9.1 fl (7.4-10.4); MONOCYTES % 9.7 % (2.0-8.0); NEUTROPHILS % 76.9 % (40.0-76.0); PLATELET 146 x1000/uL (130-400); RED BLOOD CELL COUNT 1.98 mill/uL (4.7-6.1); RED CELL DISTRIBUTION WIDTH 17.6 % (11.6-14.6)
[2022-03-29 06:49] LABS: HEMATOCRIT. 17.7 % (42.0-52.0); HEMOGLOBIN. 5.7 g/dL (14.0-18.0)
[2022-03-29 08:10] LABS: CHLORIDE 104 mEq/L (98-107)
[2022-03-29] MEDS: SUCRALFATE 1 G/10 ML UDC PO SCH ×4 (08:35→21:31)
[2022-03-29] MEDS: PANTOPRAZOLE SODIUM 40 MG/VIAL IV SCH ×2 (08:36→21:31)
[2022-03-29] MEDS: MIDODRINE HCL 5MG TABLET PO SCH ×3 (08:36→16:33)
[2022-03-29] MEDS: IPRATROPIUM/ALBUTEROL 0.5-3(2.5)MG/3ML NEB HHN PRN ×2 (08:47→16:07)
[2022-03-29] MEDS: LIDOCAINE 5% PATCH TOP SCH (14:00)
[2022-03-29] MEDS: IRON SUCROSE COMPLEX 100 MG/5 ML ML IV SCH (14:03)
[2022-03-29 19:53] LABS: HEMATOCRIT 26.7 % (42.0-52.0); HEMOGLOBIN 8.7 g/dL (14.0-18.0)
[2022-03-30] VITALS (13 sets, daily range): BP systolic 101–114; BP diastolic 57–84
[2022-03-30] MEDS: DEXT 5%/0.9% NACL 1,000 ML IV SCH ×3 (00:44→16:32)
[2022-03-30 01:10] LABS: HEMATOCRIT 24.2 % (42.0-52.0); HEMOGLOBIN 7.7 g/dL (14.0-18.0)
[2022-03-30 03:22] LABS: BASOPHILS % 0.5 % (0.0-2.0); EOSINOPHILS % 1.9 % (0.0-5.0); HEMATOCRIT. 22.4 % (42.0-52.0); HEMOGLOBIN. 7.4 g/dL (14.0-18.0); LYMPHOCYTES % 8.8 % (20.0-50.0); MEAN CORPUSCULAR HEMOGLOBIN 28.9 pg (28.0-32.0); MEAN CORPUSCULAR VOLUME 87.7 fL (80.0-94.0); NEUTROPHILS % 79.8 % (40.0-76.0); PLATELET 115 x1000/uL (130-400); RED BLOOD CELL COUNT 2.55 mill/uL (4.7-6.1); RED CELL DISTRIBUTION WIDTH 16.9 % (11.6-14.6)
[2022-03-30 03:23] LABS: INR 1.1; PROTHROMBIN TIME 11.6 sec (9.6-11.0)
[2022-03-30 04:19] LABS: CHLORIDE 106 mEq/L (98-107)
[2022-03-30] MEDS ORDERED: LIDOCAINE HCL 1% 10 MG/ML 10ML VIAL ONE (08:05)
[2022-03-30] MEDS: SUCRALFATE 1 G/10 ML UDC PO SCH ×4 (08:11→21:19)
[2022-03-30] MEDS: MIDODRINE HCL 5MG TABLET PO SCH ×3 (08:11→16:33)
[2022-03-30] MEDS: PANTOPRAZOLE SODIUM 40 MG/VIAL IV SCH ×2 (08:11→21:19)
[2022-03-30] MEDS: LIDOCAINE 5% PATCH TOP SCH (08:40)
[2022-03-30] MEDS ORDERED: PROPOFOL 200MG/20ML VIAL IV ONE (09:33)
[2022-03-30] MEDS ORDERED: LIDOCAINE HCL 1% 20ML VIAL (Pyxis) INJ ONE (09:45)
[2022-03-30 10:34] LABS: HEMOGLOBIN 6.8 g/dL (14.0-18.0)
[2022-03-30] MEDS ORDERED: ONDANSETRON HCL 4MG/2ML INJ ONE (10:50)
[2022-03-30] MEDS ORDERED: DEXAMETHASONE 4MG/ML 1ML VIAL ONE (10:50)
[2022-03-30] MEDS: METOCLOPRAMIDE HCL 10MG/2ML VIAL IV SCH ×2 (12:49→18:06)
[2022-03-31] VITALS (12 sets, daily range): BP systolic 85–137; BP diastolic 38–68
[2022-03-31] MEDS: METOCLOPRAMIDE HCL 10MG/2ML VIAL IV SCH ×4 (00:20→17:27)
[2022-03-31] MEDS: DEXT 5%/0.9% NACL 1,000 ML IV SCH ×3 (00:21→20:37)
[2022-03-31 01:21] LABS: HEMATOCRIT 29.9 % (42.0-52.0); HEMOGLOBIN 9.9 g/dL (14.0-18.0)
[2022-03-31 07:04] LABS: BASOPHILS % 0.2 % (0.0-2.0); EOSINOPHILS % 0.7 % (0.0-5.0); HEMATOCRIT. 29.9 % (42.0-52.0); HEMOGLOBIN. 9.7 g/dL (14.0-18.0); LYMPHOCYTES % 8.8 % (20.0-50.0); MEAN CORPUSCULAR HEMOGLOBIN 29.8 pg (28.0-32.0); MEAN CORPUSCULAR VOLUME 91.9 fL (80.0-94.0); MONOCYTES % 8.1 % (2.0-8.0); NEUTROPHILS % 82.2 % (40.0-76.0); PLATELET 108 x1000/uL (130-400); RED BLOOD CELL COUNT 3.26 mill/uL (4.7-6.1); RED CELL DISTRIBUTION WIDTH 17.1 % (11.6-14.6)
[2022-03-31 07:32] LABS: CHLORIDE 103 mEq/L (98-107)
[2022-03-31] MEDS: SUCRALFATE 1 G/10 ML UDC PO SCH ×4 (07:44→20:38)
[2022-03-31] MEDS: PANTOPRAZOLE SODIUM 40 MG/VIAL IV SCH ×2 (11:25→20:38)
[2022-03-31] MEDS: MIDODRINE HCL 5MG TABLET PO SCH ×2 (11:26→17:26)
[2022-03-31] MEDS: LIDOCAINE 5% PATCH TOP SCH (11:27)
[2022-04-01] VITALS (20 sets, daily range): BP systolic 96–134; BP diastolic 60–96
[2022-04-01] MEDS: METOCLOPRAMIDE HCL 10MG/2ML VIAL IV SCH ×4 (00:20→17:05)
[2022-04-01 08:09] LABS: BASOPHILS % 0.3 % (0.0-2.0); EOSINOPHILS % 2.2 % (0.0-5.0); HEMATOCRIT. 28.8 % (42.0-52.0); HEMOGLOBIN. 9.3 g/dL (14.0-18.0); LYMPHOCYTES % 7.8 % (20.0-50.0); MEAN CORPUSCULAR VOLUME 93.3 fL (80.0-94.0); MONOCYTES % 9.8 % (2.0-8.0); NEUTROPHILS % 79.9 % (40.0-76.0); PLATELET 105 x1000/uL (130-400); RED BLOOD CELL COUNT 3.08 mill/uL (4.7-6.1); RED CELL DISTRIBUTION WIDTH 17.3 % (11.6-14.6)
[2022-04-01 08:27] LABS: CHLORIDE 103 mEq/L (98-107)
[2022-04-01] MEDS: MIDODRINE HCL 5MG TABLET PO SCH ×3 (09:02→17:05)
[2022-04-01] MEDS: DEXT 5%/0.9% NACL 1,000 ML IV SCH ×2 (09:02→21:59)
[2022-04-01] MEDS: LIDOCAINE 5% PATCH TOP SCH (09:02)
[2022-04-01] MEDS: PANTOPRAZOLE SODIUM 40 MG/VIAL IV SCH ×2 (09:02→21:58)
[2022-04-01] MEDS: SUCRALFATE 1 G/10 ML UDC PO SCH ×4 (09:02→21:59)
[2022-04-01] MEDS ORDERED: POTASSIUM CHLORIDE 20MEQ TABLET SR PO NR (19:15)
[2022-04-01 19:45] LABS: BG BASE EXCESS 18.9 mmol/L (-2.0-2.0); BG CARBOXYHEMOGLOBIN 1.6 % (0.5-1.5); BG DEOXYHEMOGLOBIN 7.3 % (0.0-5.0); BG FRACTION INSPIRED OXYGEN 32; BG HCO3 ACT 47.5 mmol/L (22.0-26.0); BG METHEMOGLOBIN 0.3 % (0.0-1.5); BG OXYGEN SATURATION 92.6 % (92.0-98.5); BG OXYHEMOGLOBIN 90.8 % (94.0-97.0); BG PH 7.365 (7.350-7.450); BG PO2 63.1 mmHg (75.0-100.0); BG SAMPLE SITE RIGHT RADIAL; BG TOTAL HEMOGLOBIN 9.9 g/dL (12.0-18.0); BG VENT MODE NASAL CANNULA
[2022-04-02] VITALS (10 sets, daily range): BP systolic 94–137; BP diastolic 60–85
[2022-04-02] MEDS: METOCLOPRAMIDE HCL 10MG/2ML VIAL IV SCH ×4 (00:51→17:48)
[2022-04-02 09:00] LABS: BASOPHILS % 0.4 % (0.0-2.0); EOSINOPHILS % 3.8 % (0.0-5.0); HEMOGLOBIN. 10.1 g/dL (14.0-18.0); LYMPHOCYTES % 7.5 % (20.0-50.0); MEAN CORPUSCULAR HEMOGLOBIN 30.5 pg (28.0-32.0); MEAN PLATELET VOLUME 9.2 fl (7.4-10.4); MONOCYTES % 10.1 % (2.0-8.0); NEUTROPHILS % 78.2 % (40.0-76.0); PLATELET 119 x1000/uL (130-400); RED BLOOD CELL COUNT 3.29 mill/uL (4.7-6.1); RED CELL DISTRIBUTION WIDTH 19.1 % (11.6-14.6)
[2022-04-02] MEDS: PANTOPRAZOLE SODIUM 40 MG/VIAL IV SCH (09:10)
[2022-04-02] MEDS: MIDODRINE HCL 5MG TABLET PO SCH ×3 (09:10→17:49)
[2022-04-02] MEDS: SUCRALFATE 1 G/10 ML UDC PO SCH ×3 (09:10→17:50)
[2022-04-02] MEDS: LIDOCAINE 5% PATCH TOP SCH (09:12)
[2022-04-02 09:34] LABS: CHLORIDE 100 mEq/L (98-107)
[2022-04-02 12:08] LABS: BG BASE EXCESS 14.9 mmol/L (-2.0-2.0); BG CARBOXYHEMOGLOBIN 1.8 % (0.5-1.5); BG DEOXYHEMOGLOBIN 32.8 % (0.0-5.0); BG HCO3 ACT 43.3 mmol/L (22.0-26.0); BG METHEMOGLOBIN 0.1 % (0.0-1.5); BG OXYGEN SATURATION 66.6 % (92.0-98.5); BG OXYHEMOGLOBIN 65.3 % (94.0-97.0); BG PCO2 77.2 mmHg (35.0-45.0); BG PH 7.367 (7.350-7.450); BG PO2 32.2 mmHg (75.0-100.0); BG SAMPLE SITE RIGHT RADIAL; BG TOTAL HEMOGLOBIN 11.5 g/dL (12.0-18.0); BG VENT MODE ROOM AIR
[2022-04-02] MEDS: DEXT 5%/0.9% NACL 1,000 ML IV SCH (13:28)
[2022-04-02] MEDS ORDERED: FUROSEMIDE 40MG TABLET PO NR (16:30)
== END 2022-04-03 02:04 | disposition home or self-care (01) | DRG 241 ==
LOC: ER 12:42 → EDBEDREQ 15:07 → EDBEDREQTM 17:40 → EDBEDREQ 17:40 → EDBEDREQSVC 03-07 09:17 → ENRESERV 03-07 12:47 → MICUSO 03-07 13:51 → MICUNO 03-09 07:30 → 5EST 03-10 05:15
PROVIDERS: ADMIT Internal Medicine; ATTEND Internal Medicine
PROC: 30233N1 Transfusion of Nonautologous Red Blood Cells into Peripheral Vein, Percutaneous Approach (ICD-10-PCS; 2022-03-06)
PROC: 0DB68ZX Excision of Stomach, Via Natural or Artificial Opening Endoscopic, Diagnostic (ICD-10-PCS; 2022-03-09)
PROC: 0DB78ZX Excision of Stomach, Pylorus, Via Natural or Artificial Opening Endoscopic, Diagnostic (ICD-10-PCS; 2022-03-09)
PROC: 0W3P8ZZ Control Bleeding in Gastrointestinal Tract, Via Natural or Artificial Opening Endoscopic (ICD-10-PCS; principal; 2022-03-17)
PROC: 3E0G8GC Introduction of Other Therapeutic Substance into Upper GI, Via Natural or Artificial Opening Endoscopic (ICD-10-PCS; 2022-03-17)
PROC: 0DBK8ZZ Excision of Ascending Colon, Via Natural or Artificial Opening Endoscopic (ICD-10-PCS; 2022-03-17)
PROC: 0D968ZZ Drainage of Stomach, Via Natural or Artificial Opening Endoscopic (ICD-10-PCS; 2022-03-22)
PROC: 0D768ZZ Dilation of Stomach, Via Natural or Artificial Opening Endoscopic (ICD-10-PCS; 2022-03-22)
PROC: 0W3P8ZZ Control Bleeding in Gastrointestinal Tract, Via Natural or Artificial Opening Endoscopic (ICD-10-PCS; 2022-03-30)
PROC: 3E0G8GC Introduction of Other Therapeutic Substance into Upper GI, Via Natural or Artificial Opening Endoscopic (ICD-10-PCS; 2022-03-30)
PROC: 02HV33Z Insertion of Infusion Device into Superior Vena Cava, Percutaneous Approach (ICD-10-PCS; 2022-03-30)
PROC: B5181ZA Fluoroscopy of Superior Vena Cava using Low Osmolar Contrast, Guidance (ICD-10-PCS; 2022-03-30)
PROC: B548ZZA Ultrasonography of Superior Vena Cava, Guidance (ICD-10-PCS; 2022-03-30)
DX: K31.82 Dieulafoy lesion (hemorrhagic) of stomach and duodenum (principal); J96.01 Acute respiratory failure with hypoxia; E43 Unspecified severe protein-calorie malnutrition; R18.8 Other ascites; I95.9 Hypotension, unspecified; K31.1 Adult hypertrophic pyloric stenosis; K22.89 Other specified disease of esophagus; D50.9 Iron deficiency anemia, unspecified; K44.9 Diaphragmatic hernia without obstruction or gangrene; K80.20 Calculus of gallbladder without cholecystitis without obstruction; Z60.3 Acculturation difficulty; K63.89 Other specified diseases of intestine; J44.9 Chronic obstructive pulmonary disease, unspecified; K63.5 Polyp of colon; J98.01 Acute bronchospasm; Z20.822 Contact with and (suspected) exposure to COVID-19; Z87.11 Personal history of peptic ulcer disease; Z91.013 Allergy to seafood; Z68.22 Body mass index [BMI] 22.0-22.9, adult; Z87.891 Personal history of nicotine dependence; Y83.8 Other surgical procedures as the cause of abnormal reaction of the patient, or of later complication, without mention of misadventure at the time of the procedure; Y92.89 Other specified places as the place of occurrence of the external cause; K29.71 Gastritis, unspecified, with bleeding
CPT/HCPCS: 36415; 36573; 36600; 71045; 74174; 74177; 74181; 75726; 75774; 76700; 78278; 80048; 80053; 80076; 80305; 80307; 80320; 80329; 82330; 82375; 82378; 82607; 82728; 82746; 82805; 83540; 83550; 84484; 84703; 85014; 85018; 85025; 85027; 85049; 85384; 86301; 86850; 86900; 86920; 87389; 87426; 88305; 93005; 99152; 99153; 99285; A6261; A9512; A9560; C1725; C1730; C1766; C1769; C9113; C9803; J0610; J1100; J1200; J1644; J2250; J2370; J2405; J2704; J2765; J2930; J3010; J3480; J3490; J7030; J7040; J7042; P9016; Q9967; G0480; G0500